=== PATIENT | male | born 1990 | race Hispanic/Latino ===

== ENCOUNTER 2017-08-03 03:01 | Emergency (ER) | payer SELFPAY ==
--- NOTE | 2017-08-03 03:31 | ER ---
Nurse's Notes [facility] Name: Narciso Plummer Age: 26 yrs Sex: Male : 1990 Arrival Date: 08/03/2017 Time: 03:02 Bed 20 Private MD: Diagnosis: Epigastric pain Presentation: 08/03 03:10 Presenting complaint: Patient states: I WAS WALKING FROM MY AUNT'S HOUSE AND I FELT bp THIS PRESSURE AND LIKE EVERYTHING WAS CAVING IN, LIKE I WAS GONNA . Transition of care: patient was not received from another setting of care. Onset of symptoms was August 03, 2017 at 02:00. Care prior to arrival: None. 03:10 Method Of Arrival: Ambulatory bp 03:10 Acuity: IVANNA 4 bp Triage Assessment: 03:13 General: Appears distressed, comfortable, slender, Behavior is cooperative, appropriate bp for age, agitated, anxious. Pain: Denies pain. EENT: No deficits noted. Neuro: Level of Consciousness is awake, alert, obeys commands, Oriented to person, place, time, situation, Appropriate for age. Cardiovascular: Rhythm is sinus rhythm. Respiratory: Airway is patent Respiratory effort is even, unlabored, Respiratory pattern is regular, symmetrical. GI: No deficits noted. : No signs and/or symptoms were reported regarding the genitourinary system. Derm: No deficits noted. Musculoskeletal: Circulation, motion, and sensation intact. Range of motion: intact in all extremities. Historical: - Allergies: 03:13 No Known Allergies; bp - Home Meds: 03:13 Seroquel Oral [Active]; Cogentin Oral [Active]; Depakote ER Oral [Active]; bp - PMHx: 03:13 "psych issues"; bp - Immunization history:: Adult Immunizations up to date. - Social history:: Smoking status: Patient uses tobacco products, denies chronic smoking, but will smoke occasionally, Patient uses alcohol, occasionally. Screenin:17 Abuse screen: Denies threats or abuse. Denies injuries from another. Nutritional bp screening: No deficits noted. Tuberculosis screening: No symptoms or risk factors identified. Fall Risk None identified. Assessment: 03:15 Reassessment: SEE TRIAGE NOTE. bp 03:17 Pain: Pain radiates to GENERALIZED Pain began 1 hour ago. bp 03:38 Reassessment: PT D/C HOME AMBULATORY, DX WITH NON-SPECIFIC CHEST PAIN. bp Vital Signs: 03:13 BP 141 / 87; Pulse 73; Resp 20; Temp 98.2; Pulse Ox 99% on R/A; Weight 88.45 kg; Height bp 6 ft. 1 in. (185.42 cm); 03:13 Body Mass Index 25.73 (88.45 kg, 185.42 cm) bp ED Course: 03:02 Patient arrived in ED. ds1 03:05 James Martines MD is Attending Physician. 03:10 Reginaldo Wells, RN is Primary Nurse. bp 03:12 Triage completed. bp 03:17 Arm band placed on. bp 03:17 Patient has correct armband on for positive identification. Bed in low position. Call bp light in reach. Side rails up X2. night monitor on. Pulse ox on. 03:17 No provider procedures requiring assistance completed. Patient did not have IV access bp during this emergency room visit. Patient maintains SpO2 saturation greater than 95% on room air. Administered Medications: No medications were administered Outcome: 03:30 Discharge ordered by . gs 03:44 Discharged to home ambulatory. bp 03:44 Condition: stable 03:44 Discharge instructions given to patient, Instructed on discharge instructions, follow up and referral plans. medication usage, Demonstrated understanding of instructions, follow-up care, medications, Prescriptions given X 1. 03:45 Patient left the ED. bp Signatures: Neida Miller ds1 James Martines MD MD gs Peltier, Brian, RN RN bp
--- NOTE | 2017-08-03 03:31 | EDPHYS ---
Physician Documentation [facility] Name: Narciso Plummer Age: 26 yrs Sex: Male : 1990 Arrival Date: 08/03/2017 Time: 03:02 Bed 20 Private MD: ED Physician James Martines HPI: 08/03 03:28 This 26 yrs old Male presents to ER via Ambulatory with complaints of Chest gs Pain, Headache. 03:28 The patient or guardian reports chest pain that is located primarily in the epigastric gs area. The pain does not radiate. Associated signs and symptoms: Pertinent positives: headache, Pertinent negatives: shortness of breath, syncope. The chest pain is described as burning. Duration: The patient or guardian reports multiple episodes, that are intermittent, that wax and wane, with no pattern. Modifying factors: The symptoms are alleviated by nothing. the symptoms are aggravated by eating. Severity of pain: At its worst the pain was moderate in the emergency department the pain has improved markedly. The patient has experienced similar episodes in the past, several times. Historical: - Allergies: 03:13 No Known Allergies; bp - Home Meds: 03:13 Seroquel Oral [Active]; Cogentin Oral [Active]; Depakote ER Oral [Active]; bp - PMHx: 03:13 "psych issues"; bp - Immunization history:: Adult Immunizations up to date. - Social history:: Smoking status: Patient uses tobacco products, denies chronic smoking, but will smoke occasionally, Patient uses alcohol, occasionally. ROS: 03:28 All other systems are negative. gs 03:32 Neuro: Positive for headache, intermittent gradual onset mild, not new. gs Exam: 03:28 Head/Face: Normocephalic, atraumatic. Eyes: Pupils equal round and reactive to light, gs extra-ocular motions intact. Lids and lashes normal. Conjunctiva and sclera are non-icteric and not injected. Cornea within normal limits. Periorbital areas with no swelling, redness, or edema. ENT: Nares patent. No nasal discharge, no septal abnormalities noted. Tympanic membranes are normal and external auditory canals are clear. Oropharynx with no redness, swelling, or masses, exudates, or evidence of obstruction, uvula midline. Mucous membranes moist. Neck: Trachea midline, no thyromegaly or masses palpated, and no cervical lymphadenopathy. Supple, full range of motion without nuchal rigidity, or vertebral point tenderness. No Meningismus. Chest/axilla: Normal chest wall appearance and motion. Nontender with no deformity. No lesions are appreciated. Cardiovascular: Regular rate and rhythm with a normal S1 and S2. No gallops, murmurs, or rubs. Normal PMI, no JVD. No pulse deficits. Respiratory: Lungs have equal breath sounds bilaterally, clear to auscultation and percussion. No rales, rhonchi or wheezes noted. No increased work of breathing, no retractions or nasal flaring. Abdomen/GI: Soft, non-tender, with normal bowel sounds. No distension or tympany. No guarding or rebound. No evidence of tenderness throughout. Back: No spinal tenderness. No costovertebral tenderness. Full range of motion. Skin: Warm, dry with normal turgor. Normal color with no rashes, no lesions, and no evidence of cellulitis. MS/ Extremity: Pulses equal, no cyanosis. Neurovascular intact. Full, normal range of motion. Neuro: Awake and alert, GCS 15, oriented to person, place, time, and situation. Cranial nerves II-XII grossly intact. Motor strength 5/5 in all extremities. Sensory grossly intact. Cerebellar exam normal. Normal gait. 03:28 Constitutional: The patient appears alert, awake. 03:28 ECG was reviewed by the Attending Physician. Vital Signs: 03:13 BP 141 / 87; Pulse 73; Resp 20; Temp 98.2; Pulse Ox 99% on R/A; Weight 88.45 kg; Height bp 6 ft. 1 in. (185.42 cm); 03:13 Body Mass Index 25.73 (88.45 kg, 185.42 cm) bp MDM: 03:28 Patient medically screened. gs 03:28 Differential diagnosis: abnormal EKG, chest wall pain, gastroesophageal reflux disease gs (GERD). Data reviewed: vital signs. 03:32 Counseling: I had a detailed discussion with the patient and/or guardian regarding: the gs presence of at least one elevated blood pressure reading (>120/80) during this emergency department visit. Special discussion: I have referred the patient to see his PCP for further evaluation of high blood pressure. EC:28 Rate is 73 beats/min. Rhythm is regular. IA interval is normal. QRS interval is normal. gs T waves are Normal. Clinical impression: Abnormal EKG without significant change. No change from previous ECG on May 17, 2017. Interpreted by me. Administered Medications: No medications were administered Disposition: 08/03/17 03:30 Discharged to Home. Impression: Epigastric pain. - Condition is Stable. - Discharge Instructions: Nonspecific Chest Pain, Managing Your High Blood Pressure. - Prescriptions for Pepcid 20 mg Oral Tablet - take 1 tablet by ORAL route every 12 hours for 10 days; 20 tablet. - Medication Reconciliation Form, Thank You Letter, Antibiotic Education, Prescription Opioid Use form. - Follow up: Private Physician; When: 2 - 3 days; Reason: Re-evaluation by your physician. Signatures: James Martines MD MD gs Peltier, Brian, RN RN bp
[2017-08-03 03:50] VITALS: BP 141/87; TEMP 98.2; O2SAT 99
--- NOTE | 2017-08-03 10:02 | EKG ---
Test Date: 2017-08-03 Test Time: 03:17:12 Lapper: EMS MEASUREMENT RESULTS: Intervals: Rate: 73 VA: 176 QRSD: 82 QT: 390 QTc: 429 [place]: P: 62 VA: 176 QRS: 73 T: 46 INTERPRETIVE STATEMENTS: Normal sinus rhythm ST elevation, probably due to early repolarization Borderline ECG Compared to ECG 05/17/2017 13:56:47 ST (T wave) deviation now present Early repolarization now present Electronically Signed On 08-03-17 10:01:21 CDT by Avery Stanley
== END 2017-08-03 03:45 | disposition home or self-care (01) ==
LOC: ER 03:01
DX: R10.13 Epigastric pain (principal); Z72.0 Tobacco use
CPT/HCPCS: 93005; 99284

== ENCOUNTER 2017-09-03 | Emergency (ER) | payer SELFPAY ==
--- NOTE | 2017-09-03 22:13 | ER ---
Nurse's Notes [facility] Name: Narciso Plummer Age: 26 yrs Sex: Male : 1990 Arrival Date: 09/03/2017 Time: 20:46 Bed 13 Private MD: Diagnosis: Epigastric pain Presentation: 09/03 20:53 Presenting complaint: Patient states: Epigastric pain since Jessica. Patient seen for aj same complaint 1 month ago. Patient is requesting ultrasound. Transition of care: patient was not received from another setting of care. Onset of symptoms was April 2017. Initial Sepsis Screen: Does the patient meet any 2 criteria? No. Patient's initial sepsis screen is negative. Does the patient have a suspected source of infection? No. Patient's initial sepsis screen is negative. Care prior to arrival: None. 20:53 Method Of Arrival: Ambulatory 20:53 Acuity: IVANNA 4 aj Triage Assessment: 20:55 General: Appears in no apparent distress. comfortable, Behavior is calm, cooperative, aj appropriate for age. Pain: Complains of pain in epigastric area. Neuro: Level of Consciousness is awake, alert, obeys commands, Oriented to person, place, time, situation. Respiratory: Airway is patent Respiratory effort is even, unlabored, Respiratory pattern is regular, symmetrical. GI: Reports epigastric pain. Derm: Skin is intact, is healthy with good turgor, Skin is pink, warm \T\ dry. normal. Historical: - Allergies: 20:55 No Known Allergies; aj - Home Meds: 20:55 Cogentin Oral [Active]; Depakote ER Oral [Active]; Seroquel Oral [Active]; aj - PMHx: 20:55 Bipolar disorder; aj - PSHx: 20:55 None; aj - Immunization history:: Adult Immunizations up to date. - Social history:: Smoking status: Patient uses tobacco products, denies chronic smoking, but will smoke occasionally. Screenin:25 Abuse screen: Denies threats or abuse. Denies injuries from another. Nutritional lp1 screening: No deficits noted. Tuberculosis screening: No symptoms or risk factors identified. Fall Risk None identified. Assessment: 21:30 General: Appears in no apparent distress. Behavior is anxious. Pain: Complains of pain lp1 in epigastric area. Neuro: Level of Consciousness is awake, alert, obeys commands, Oriented to person, place, time, situation. Cardiovascular: Patient's skin is warm and dry. Respiratory: Respiratory effort is even, unlabored. GI: Abdomen is flat, Reports upper abdominal pain, since April 2017. : No signs and/or symptoms were reported regarding the genitourinary system. EENT: No signs and/or symptoms were reported regarding the EENT system. Derm: Skin is pink, warm \T\ dry. Musculoskeletal: Circulation, motion, and sensation intact. Vital Signs: 20:55 BP 130 / 86; Pulse 84; Resp 17; Temp 97.6; Pulse Ox 99% on R/A; Weight 88.45 kg; Height aj 6 ft. 2 in. (187.96 cm); Pain 5/10; 20:55 Body Mass Index 25.04 (88.45 kg, 187.96 cm) ED Course: 20:46 Patient arrived in ED. ds1 20:54 Triage completed. aj 20:55 Arm band placed on right wrist. Patient placed in waiting room, Patient notified of wait time. 21:30 Lubna Cain, RN is Primary Nurse. lp1 21:34 James Martines MD is Attending Physician. 22:12 Jaspreet Carey MD is Referral Physician. gs 22:25 Patient has correct armband on for positive identification. lp1 22:25 No provider procedures requiring assistance completed. Patient did not have IV access lp1 during this emergency room visit. Administered Medications: No medications were administered Outcome: 22:13 Discharge ordered by . gs 22:25 Discharged to home ambulatory. lp1 22:25 Condition: good 22:25 Discharge instructions given to patient, Instructed on discharge instructions, follow up and referral plans. medication usage, Demonstrated understanding of instructions, follow-up care, medications, Prescriptions given X 1. 22:26 Patient left the ED. lp1 Signatures: Elaine Oliver RN RN aj Sanford, Demi ds1 Lubna Cain RN RN lp1 James Martines MD MD
--- NOTE | 2017-09-03 22:14 | EDPHYS ---
Physician Documentation [facility] Name: Narciso Plummer Age: 26 yrs Sex: Male : 1990 Arrival Date: 09/03/2017 Time: 20:46 Bed 13 Private MD: ED Physician James Martines HPI: 09/03 22:05 This 26 yrs old Male presents to ER via Ambulatory with complaints of Upper gs Abd Pain. 22:05 The patient presents with abdominal pain in the epigastric area, in the upper abdomen. gs Onset: The symptoms/episode began/occurred 1 year(s) ago. Associated signs and symptoms: Pertinent negatives: nausea and vomiting, chest pain, fever. The symptoms are described as burning, dull. Modifying factors: The symptoms are alleviated by nothing, the symptoms are aggravated by alcohol. Severity of pain: At its worst the pain was moderate in the emergency department the pain has improved markedly. The patient has experienced similar episodes in the past, multiple times. Historical: - Allergies: 20:55 No Known Allergies; aj - Home Meds: 20:55 Cogentin Oral [Active]; Depakote ER Oral [Active]; Seroquel Oral [Active]; aj - PMHx: 20:55 Bipolar disorder; aj - PSHx: 20:55 None; aj - Immunization history:: Adult Immunizations up to date. - Social history:: Smoking status: Patient uses tobacco products, denies chronic smoking, but will smoke occasionally. ROS: 22:05 All other systems are negative. gs Exam: 22:05 Head/Face: Normocephalic, atraumatic. Eyes: Pupils equal round and reactive to light, gs extra-ocular motions intact. Lids and lashes normal. Conjunctiva and sclera are non-icteric and not injected. Cornea within normal limits. Periorbital areas with no swelling, redness, or edema. ENT: Nares patent. No nasal discharge, no septal abnormalities noted. Tympanic membranes are normal and external auditory canals are clear. Oropharynx with no redness, swelling, or masses, exudates, or evidence of obstruction, uvula midline. Mucous membranes moist. Neck: Trachea midline, no thyromegaly or masses palpated, and no cervical lymphadenopathy. Supple, full range of motion without nuchal rigidity, or vertebral point tenderness. No Meningismus. Chest/axilla: Normal chest wall appearance and motion. Nontender with no deformity. No lesions are appreciated. Cardiovascular: Regular rate and rhythm with a normal S1 and S2. No gallops, murmurs, or rubs. Normal PMI, no JVD. No pulse deficits. Respiratory: Lungs have equal breath sounds bilaterally, clear to auscultation and percussion. No rales, rhonchi or wheezes noted. No increased work of breathing, no retractions or nasal flaring. Abdomen/GI: Soft, non-tender, with normal bowel sounds. No distension or tympany. No guarding or rebound. No evidence of tenderness throughout. Back: No spinal tenderness. No costovertebral tenderness. Full range of motion. Skin: Warm, dry with normal turgor. Normal color with no rashes, no lesions, and no evidence of cellulitis. MS/ Extremity: Pulses equal, no cyanosis. Neurovascular intact. Full, normal range of motion. Neuro: Awake and alert, GCS 15, oriented to person, place, time, and situation. Cranial nerves II-XII grossly intact. Motor strength 5/5 in all extremities. Sensory grossly intact. Cerebellar exam normal. Normal gait. 22:05 Constitutional: The patient appears alert, awake. Vital Signs: 20:55 BP 130 / 86; Pulse 84; Resp 17; Temp 97.6; Pulse Ox 99% on R/A; Weight 88.45 kg; Height aj 6 ft. 2 in. (187.96 cm); Pain 5/10; 20:55 Body Mass Index 25.04 (88.45 kg, 187.96 cm) aj MDM: 22:05 Differential diagnosis: gastritis, gastroesophageal reflux disease, non-specific abd gs pain. Data reviewed: vital signs, nurses notes. 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 Response to treatment: There is no appreciated change of the patient's symptoms at this time, and as a result, I will discharge patient. 22:13 Patient medically screened. gs Administered Medications: No medications were administered Disposition: 09/03/17 22:13 Discharged to Home. Impression: Epigastric pain. - Condition is Stable. - Discharge Instructions: Abdominal Pain, Adult. - Prescriptions for Prilosec 20 mg Oral Capsule, Delayed Release(E.C.) - take 1 capsule by ORAL route once daily; 15 capsule. - Medication Reconciliation Form, Thank You Letter, Antibiotic Education, Prescription Opioid Use form. - Follow up: Jaspreet Carey MD; When: 5 - 6 days; Reason: Re-evaluation by your physician. Signatures: Elaine Oliver RN RN Lubna Metz RN RN lp1 James Martines MD MD
== END 2017-09-03 22:26 | disposition home or self-care (01) ==
CPT/HCPCS: 99282

== ENCOUNTER 2021-04-28 23:36 | Observation (INO) | payer SELFPAY ==
--- NOTE | 2021-04-29 03:30 | ER ---
Nurse's Notes [facility] Name: Narciso Plummer Age: 30 yrs Sex: Male : 1990 Arrival Date: 04/28/2021 Time: 23:44 Bed 20 Private MD: Diagnosis: Cutaneous abscess of limb, unspecified-left thigh;Fever, unspecified Presentation: 04/28 23:58 Chief complaint: Patient states: Multiple insect bites on legs x 5 days ago. da3 Coronavirus screen: Vaccine status: Patient reports being unvaccinated. Ebola Screen: No symptoms or risks identified at this time. Initial Sepsis Screen: Does the patient meet any 2 criteria? No. Patient's initial sepsis screen is negative. Does the patient have a suspected source of infection? No. Patient's initial sepsis screen is negative. Risk Assessment: Do you want to hurt yourself or someone else? Patient reports no desire to harm self or others. Onset of symptoms was April 24, 2021 at 15:00. 23:58 Method Of Arrival: Ambulatory da3 23:58 Acuity: IVANNA 3 da3 Triage Assessment: 23:58 Bite description: bite sustained to right leg and left leg. General: Appears in no da3 apparent distress. comfortable, Behavior is calm, cooperative. Pain: Pain currently is 10 out of 10 on a pain scale. 04/29 06:30 Bite description: animal information: vaccination(s) is not applicable. bb 06:31 Bite description: by not an animal bite. bb Historical: - Allergies: 04:24 No Known Allergies; bb - Immunization history:: Client reports having NOT received the Covid vaccine. - Social history:: Smoking status: Patient reports the use of cigarette tobacco products, Patient denies any tobacco usage or history of. Screenin:25 Abuse screen: Denies threats or abuse. Nutritional screening: No deficits noted. bb Tuberculosis screening: No symptoms or risk factors identified. Fall Risk None identified. Assessment: 03:28 Reassessment: ED physician states "he does not need blood cultures". bb 04:22 General: Appears in no apparent distress. uncomfortable, Behavior is calm, cooperative. bb Pain: Complains of pain in left leg Pain currently is 10 out of 10 on a pain scale. Neuro: Level of Consciousness is awake, alert, obeys commands, Oriented to person, place, time, situation. Cardiovascular: Capillary refill < 3 seconds Patient's skin is warm and dry. Respiratory: Airway is patent Respiratory effort is even, unlabored, Respiratory pattern is regular. GI: No signs and/or symptoms were reported involving the gastrointestinal system. Derm: Skin is intact, multiple different size abscesses scattered over legs. Musculoskeletal: Circulation, motion, and sensation intact. 05:30 Reassessment: Patient is alert, oriented x 3, equal unlabored respirations, skin bb warm/dry/pink. pt resting quietly, IV site patent, intact with fluids infusing, family at bedside. 06:29 Reassessment: Patient is alert, oriented x 3, equal unlabored respirations, skin bb warm/dry/pink. resting quietly, IV site intact, patent, family at bedside awaiting room assignment. Vital Signs: 04/28 23:58 BP 173 / 72; Pulse 77; Resp 16; Temp 98.9; Pulse Ox 99% on R/A; Weight 84.37 kg; Height da3 6 ft. 2 in. (187.96 cm); 04/29 04:25 BP 124 / 81; Pulse 66; Resp 16 S; Pulse Ox 98% on R/A; bb 06:41 BP 116 / 70; Pulse 61; Resp 16 S; Pulse Ox 96% on R/A; bb 04/28 23:58 Body Mass Index 23.88 (84.37 kg, 187.96 cm) da3 ED Course: 04/28 23:44 Patient arrived in ED. da3 23:58 Arm band placed on left wrist. da3 04/29 00:01 Triage completed. da3 02:51 Raheem Powers MD is Attending Physician. placido 03:27 Sinan Gutierrez MD is Hospitalizing Provider. placido 03:43 Initial lab(s) drawn, by ga, sent to lab. Inserted saline lock: 20 gauge in right lt3 antecubital area, using aseptic technique. 03:53 X-ray completed. Patient moved back from radiology. md1 04:00 Femur Left XRAY In Process Unspecified. EDMS 04:02 EKG done, by ED staff, reviewed by Raheem Powers MD. lt3 04:05 COVID-19 SARS RT PCR (Document "Date of Onset" if Symptomatic) Sent. lt3 04:22 Rousseau, Rema, RN is Primary Nurse. bb 04:25 Patient has correct armband on for positive identification. Placed in gown. Bed in low bb position. Call light in reach. Side rails up X 1. Adult w/ patient. Pulse ox on. NIBP on. 06:32 No provider procedures requiring assistance completed. Patient admitted, IV remains in bb place. Administered Medications: 03:40 Drug: NS 0.9% 1000 ml Route: IV; Rate: 1 bolus; Site: right antecubital; bb 04:30 Follow up: IV Status: Completed infusion; IV Intake: 1000ml bb 03:40 Drug: Zofran (Ondansetron) 4 mg Route: IVP; Site: right antecubital; bb 04:40 Follow up: Response: No adverse reaction bb 03:42 Drug: morphine 4 mg Route: IVP; Site: right antecubital; bb 04:40 Follow up: Response: No adverse reaction bb 04:26 Drug: Zosyn (piperacillin-tazobactam) 3.375 grams Route: IVPB; Infused Over: 60 mins; bb Site: right antecubital; 06:05 Follow up: IV Status: Completed infusion; IV Intake: 100ml bb 06:05 Drug: vancoMYCIN 1 grams Route: IVPB; Infused Over: 2 hrs; Site: right antecubital; bb 07:51 Follow up: Response: No adverse reaction [facility] Intake: 04:30 IV: 1000ml; Total: 1000ml. bb 06:05 IV: 100ml; Total: 1100ml. bb Outcome: 03:29 Decision to Hospitalize by Provider. [facility] 06:32 Instructed on the need for admit. bb 14:51 Admitted to Med/surg accompanied by nurse, via stretcher, room surgery at this time. 6 14:51 Condition: stable 14:56 Patient left the ED. [facility] Signatures: Dispatcher [employer] EDMS Raheem Powers MD MD cha Ballard, Brenda, RN RN bb Yudi Lin md1 Jayme Marques, RN RN da3 Nuzhat Dunaway RN RN tram6 Bette Haney lt3 Corrections: (The following items were deleted from the chart) 06:33 06:32 Derm: Skin is pink, warm \\T\\ dry. bb bb
--- NOTE | 2021-04-29 03:30 | EDPHYS ---
Physician Documentation [facility] Name: Narciso Plummer Age: 30 yrs Sex: Male : 1990 Arrival Date: 04/28/2021 Time: 23:44 Bed 20 Private MD: ED Physician Raheem Powers HPI: 04/29 03:20 This 30 yrs old Male presents to ER via Ambulatory with complaints of Insect placido Bite. 03:20 The patient presents with an abscess, moderate-sized, decreased range of motion, pain. placido The complaints affect the lateral aspect of left thigh and medial aspect of left thigh. Context: The problem was sustained at an unknown site, resulted from an unknown cause. Onset: The symptoms/episode began/occurred 5 day(s) ago. Modifying factors: The symptoms are alleviated by elevating leg, remaining still, the symptoms are aggravated by movement, bending knee. Associated signs and symptoms: Pertinent positives: swelling, warmth, of the lateral aspect of left thigh, left hamstring, medial aspect of left thigh and left quadriceps. Treatment prior to arrival includes: alyssa wrap. Severity of symptoms: At their worst the symptoms were moderate, in the emergency department the symptoms are unchanged. The patient has experienced similar episodes in the past, several times. Historical: - Allergies: 04:24 No Known Allergies; bb - Immunization history:: Client reports having NOT received the Covid vaccine. - Social history:: Smoking status: Patient reports the use of cigarette tobacco products, Patient denies any tobacco usage or history of. ROS: 03:21 Constitutional: Negative for fever, chills, and weight loss, Eyes: Negative for injury, placido pain, redness, and discharge, ENT: Negative for injury, pain, and discharge, Neck: Negative for injury, pain, and swelling, Cardiovascular: Negative for chest pain, palpitations, and edema, Respiratory: Negative for shortness of breath, cough, wheezing, and pleuritic chest pain, Abdomen/GI: Negative for abdominal pain, nausea, vomiting, diarrhea, and constipation, : Negative for injury, bleeding, discharge, and swelling, MS/Extremity: Negative for injury and deformity, Skin: Negative for injury, rash, and discoloration, Neuro: Negative for headache, weakness, numbness, tingling, and seizure, Psych: Negative for depression, anxiety, suicide ideation, homicidal ideation, and hallucinations, Allergy/Immunology: Negative for hives, rash, and allergies, Endocrine: Negative for neck swelling, polydipsia, polyuria, polyphagia, and marked weight changes. 03:21 Back: Positive for pain at rest, pain with movement. Exam: 03:21 Constitutional: This is a well developed, well nourished patient who is awake, alert, placido and in no acute distress. Head/Face: Normocephalic, atraumatic. Eyes: Pupils equal round and reactive to light, extra-ocular motions intact. Lids and lashes normal. Conjunctiva and sclera are non-icteric and not injected. Cornea within normal limits. Periorbital areas with no swelling, redness, or edema. ENT: Nares patent. No nasal discharge, no septal abnormalities noted. Tympanic membranes are normal and external auditory canals are clear. Oropharynx with no redness, swelling, or masses, exudates, or evidence of obstruction, uvula midline. Mucous membranes moist. Neck: Trachea midline, no thyromegaly or masses palpated, and no cervical lymphadenopathy. Supple, full range of motion without nuchal rigidity, or vertebral point tenderness. No Meningismus. Chest/axilla: Normal chest wall appearance and motion. Nontender with no deformity. No lesions are appreciated. Cardiovascular: Regular rate and rhythm with a normal S1 and S2. No gallops, murmurs, or rubs. Normal PMI, no JVD. No pulse deficits. Respiratory: Lungs have equal breath sounds bilaterally, clear to auscultation and percussion. No rales, rhonchi or wheezes noted. No increased work of breathing, no retractions or nasal flaring. Abdomen/GI: Soft, non-tender, with normal bowel sounds. No distension or tympany. No guarding or rebound. No evidence of tenderness throughout. Back: No spinal tenderness. No costovertebral tenderness. Full range of motion. Male : Normal genitalia with no discharge or lesions. Skin: Warm, dry with normal turgor. Normal color with no rashes, no lesions, and no evidence of cellulitis. Neuro: Awake and alert, GCS 15, oriented to person, place, time, and situation. Cranial nerves II-XII grossly intact. Motor strength 5/5 in all extremities. Sensory grossly intact. Cerebellar exam normal. Normal gait. Psych: Awake, alert, with orientation to person, place and time. Behavior, mood, and affect are within normal limits. 03:21 Musculoskeletal/extremity: Extremities: noted in the medial aspect of left thigh: decreased ROM, erythema, pain, swelling, ROM: full active range of motion, full passive range of motion, in the medial aspect of left thigh, Circulation is intact in all extremities. Sensation intact. DVT Exam: negative Homans' sign noted on exam, no appreciated bluish discoloration, pain, swelling, tenderness, erythema, increased warmth. 04:14 ECG was reviewed by the Attending Physician. [facility] Vital Signs: 04/28 23:58 BP 173 / 72; Pulse 77; Resp 16; Temp 98.9; Pulse Ox 99% on R/A; Weight 84.37 kg; Height da3 6 ft. 2 in. (187.96 cm); 04/29 04:25 BP 124 / 81; Pulse 66; Resp 16 S; Pulse Ox 98% on R/A; bb 06:41 BP 116 / 70; Pulse 61; Resp 16 S; Pulse Ox 96% on R/A; bb 04/28 23:58 Body Mass Index 23.88 (84.37 kg, 187.96 cm) da3 MDM: 02:51 Patient medically screened. [facility] 03:23 Differential diagnosis: closed fracture, contusion, abrasion. Data reviewed: [facility] signs, nurses notes, lab test result(s), EKG, radiologic studies. Data interpreted: radiation monitor: rate is 77 beats/min, rhythm is regular, Pulse oximetry: on room air is 99 %. Test interpretation: by ED physician or midlevel provider: ECG, plain radiologic studies. Counseling: I had a detailed discussion with the patient and/or guardian regarding: the historical points, exam findings, and any diagnostic results supporting the discharge/admit diagnosis, lab results, radiology results, the need for further work-up and treatment in the hospital. 04/29 03:19 Order name: CBC with Diff; Complete Time: 04:38 [facility] 04/29 03:19 Order name: Comprehensive Metabolic Panel; Complete Time: 04:38 [facility] 04/29 03:19 Order name: Femur Left XRAY; Complete Time: 09:50 [facility] 04/29 03:23 Order name: COVID-19 SARS RT PCR (Document "Date of Onset" if Symptomatic) mw2 04/29 03:24 Order name: SARS-COV-2 RT PCR; Complete Time: 09:50 EDMS 04/29 03:23 Order name: EKG; Complete Time: 03:24 placido 04/29 03:23 Order name: EKG - Nurse/Tech; Complete Time: 04:03 placido EC:14 Rate is 58 beats/min. Rhythm is regular. QRS Mcalister is Normal. PA interval is normal. QRS placido interval is normal. QT interval is normal. No Q waves. T waves are Normal. No ST changes noted. Clinical impression: Normal ECG and No evidence of ischemia. Interpreted by me. Reviewed by me. Administered Medications: 03:40 Drug: NS 0.9% 1000 ml Route: IV; Rate: 1 bolus; Site: right antecubital; bb 04:30 Follow up: IV Status: Completed infusion; IV Intake: 1000ml bb 03:40 Drug: Zofran (Ondansetron) 4 mg Route: IVP; Site: right antecubital; bb 04:40 Follow up: Response: No adverse reaction bb 03:42 Drug: morphine 4 mg Route: IVP; Site: right antecubital; bb 04:40 Follow up: Response: No adverse reaction bb 04:26 Drug: Zosyn (piperacillin-tazobactam) 3.375 grams Route: IVPB; Infused Over: 60 mins; bb Site: right antecubital; 06:05 Follow up: IV Status: Completed infusion; IV Intake: 100ml bb 06:05 Drug: vancoMYCIN 1 grams Route: IVPB; Infused Over: 2 hrs; Site: right antecubital; bb 07:51 Follow up: Response: No adverse reaction [facility] Disposition Summary: 04/29/21 03:29 Hospitalization Ordered Hospitalization Status: Observation placido Provider: Sinan Gutierrez cha Condition: Stable placido Problem: new placido Symptoms: have improved placido Bed/Room Type: Standard placido Location: [facility] ER HOLD(04/29/21 03:43) cg Room Assignment: ERHOLD-(04/29/21 03:43) cg Diagnosis - Cutaneous abscess of limb, unspecified - left thigh placido - Fever, unspecified placido Forms: - Medication Reconciliation Form placido - SBAR form placido Signatures: Dispatcher [employer] EDRaheem Guerrier MD MD cha Mickail, Joel, PA PA jmm Ballard, Brenda, RN RN Esme Alvarado RN RN cg Jayme Marques RN RN da3 Nuzhat Dunaway RN jh6 Corrections: (The following items were deleted from the chart) 03:29 Telemetry/MedSurg (observation) [facility] 03:29 [facility]
[2021-04-29 03:56] LABS: Absolute Lymphocytes (CBC) 2.1 K/uL (0.7-4.9); Basophils % 0.7 % (0-1.3); Hematocrit 45.6 % (39.6-49.0); Lymphocytes % 16.2 % (15.3-44.8); MPV 8.6 fL (7.6-11.3); RBC Red Blood Cell Count 5.73 M/uL (4.33-5.43)
[2021-04-29 04:08] LABS: Albumin 3.5 g/dL (3.4-5.0); Bilirubin Total 0.5 mg/dL (0.2-1.0); Potassium 3.7 mmol/L (3.5-5.1)
[2021-04-29] MEDS ORDERED: ONDANSETRON 4 MG/2 ML VIAL ONE ×2 (04:10→14:22)
[2021-04-29] MEDS ORDERED: MORPHINE 4 MG/ML SYR ONE ×2 (04:10→09:23)
[2021-04-29] MEDS ORDERED: NA CHLORIDE 0.9% 250 ML ONE ×2 (04:10→04:11)
[2021-04-29] MEDS ORDERED: VANCOMYCIN 1 GM/VIAL ONE (04:10)
[2021-04-29] MEDS ORDERED: NA CHLORIDE 0.9% 100 ML ONE ×3 (04:10→12:17)
[2021-04-29] MEDS ORDERED: PIPERACIL/TAZO 3.375 GM VIAL IV ONE ×2 (04:11→12:18)
[2021-04-29] MEDS ORDERED: NA CHLORIDE 0.9% 1,000 ML ONE ×2 (04:11→09:23)
[2021-04-29 07:43] VITALS: BMI 25.0
--- NOTE | 2021-04-29 07:57 | RAD REPORT ---
EXAM DESCRIPTION: RAD - Femur Left - 04/29/2021 3:59 am CLINICAL HISTORY: Left leg pain FINDINGS: No fracture is seen. No bony lesion is displayed. Edema is present the subcutaneous tissues
[2021-04-29] MEDS ORDERED: VANCOMYCIN 1 GM in NA CHLORIDE 0.9% 250 ML IVPB SCH (08:01)
[2021-04-29] MEDS ORDERED: MORPHINE 4 MG/ML SYR IV PRN (08:01)
[2021-04-29] MEDS ORDERED: NA CHLORIDE 0.9% 1,000 ML IV SCH (08:01)
[2021-04-29] MEDS ORDERED: ONDANSETRON 4 MG/2 ML VIAL IV PRN (08:01)
[2021-04-29] MEDS ORDERED: ACETAMINOPHEN 325 MG TABLET PO PRN (08:08)
[2021-04-29] MEDS ORDERED: PIPER TAZO 3.375 GM in NA CHLORIDE 0.9% 100 ML IV SCH (09:00)
[2021-04-29] MEDS ORDERED: VANCOMYCIN 1.5 GM in NA CHLORIDE 0.9% 500 ML IVPB SCH (09:00)
[2021-04-29] MEDS ORDERED: MIDAZOLAM HCL 2 MG/2 ML INJ ONE (14:22)
[2021-04-29] MEDS ORDERED: KETOROLAC 30 MG/ML INJ ONE (14:22)
[2021-04-29] MEDS ORDERED: propofoL 200 MG/20 ML VIAL IV ONE (14:22)
[2021-04-29] MEDS ORDERED: FENTANYL CITR 100 MCG/2 ML ONE (14:22)
[2021-04-29] MEDS ORDERED: LIDOCAINE 1% MPF 30 ML VIAL ONE (14:23)
[2021-04-29] MEDS ORDERED: Mastisol Adhesive Liq ONE (14:32)
[2021-04-29] MEDS ORDERED: GLYCOPYRROLATE 0.2 MG/ML SYR ONE (14:47)
--- NOTE | 2021-04-29 15:54 | P.BOP ---
Preoperative diagnosis: cellutis, multiple abscess left thigh Postoperative diagnosis: same Primary procedure: 1. Incision and drainage complex left lateral thigh 10x8cm Secondary procedure: 2. Incision and drainage complex left medial thigh 8x6cm Estimated blood loss: <20cc Specimen: pus Findings: complex abscess Anesthesia: General Complications: None Drain(s): Other Transferred to: Recovery Room Condition: Good
[2021-04-29] MEDS ORDERED: Ringers Lactate 1,000 ML IV ONE (15:55)
[2021-04-29] MEDS ORDERED: CODEINE 30MG/APAP 300MG TAB ONE (16:36)
[2021-04-29 17:25] VITALS: BP 121/9; TEMP 97.5; O2SAT 100
--- NOTE | 2021-04-30 12:11 | OP ---
Date of Procedure: 04/30/2021 Surgeon: Sinan Gutierrez MD Preoperative Diagnosis: Cellulitis, multiple abscess on left thigh. Postoperative Diagnosis: Cellulitis, multiple abscess on left thigh. Procedure: 1.Incision and drainage of complex left lateral thigh abscess 10 x 8 cm. 2.Incision and drainage of complex lateral thigh abscess 8 x 6 cm. Estimated Blood Loss: Less than 20 cc. Findings: Complex abscess, lateral and medial left thigh. Anesthesia: General plus local. Indication: This is a case of a 30-year-old patient comes to us with a cellulitis of the left thigh region and found to have some purulent discharge coming from the area. The patient diagnosed with ab scess and booked in OR immediately. Benefits, alternatives, and risks of the I and D fully explained which include, but not limited to infection, bleeding, damage to adjacent structures, anesthesia com plication, recurrence, [place] and even . He also understands this may not relieve symptoms. He katherine ht need more than one surgical intervention. He understood, signed a consent. Procedure In Detail: The patient was brought to the operating room and placed in supine position. A nesthesia was done without complication. The left thigh was prepped and draped in sterile fashion. We identified the areas of concern, has some frequency of purulent discharge. We proceeded then to d o each one individually but using the same technique, which consisted of local anesthetic, then remov ing the devitalized necrotic tissue present. Once we removed the necrotic tissue present, gave us ac cess to a complex abscess with multiple loculations on each side. Each of them basically explored, fl ushed. Devitalized tissue was removed and then the area was packed with iodoform quarter of an inch. The second procedure was done using the same technique. Each area was irrigated individually and t hen packed. The patient tolerated the procedure well. Cultures were obtained. The patient was sent to recovery in stable condition. Discharge Summary: Diagnosis: Cellulitis and multiple abscess, left thigh. Procedure: Incision and drainage of complex left lateral and left medial thigh. Disposition: Home. Activity: As tolerated, no heavy lifting. Plan: Follow up in my office in 1 week. Call for appointment [phone]. Wet-to-dry dressing, manish guallpa daily. We explained to the patient and the family how to do dressing changes and they feel com fortable with that. Medications: See orders. SANDRA/MODL Voice ID: [id number] Report ID: [id number]
== END 2021-04-29 17:15 | disposition home or self-care (01) ==
LOC: ER 23:36 → ERHOLD 04-29 04:14
PROVIDERS: ADMIT Surgery; ATTEND Surgery
PROC: 0J9M0ZZ Drainage of Left Upper Leg Subcutaneous Tissue and Fascia, Open Approach (ICD-10-PCS; principal; 2021-04-29 14:00)
DX: L03.116 Cellulitis of left lower limb (principal); L02.416 Cutaneous abscess of left lower limb; Z20.822 Contact with and (suspected) exposure to COVID-19
CPT/HCPCS: 36415; 80053; 85025; 87070; 87075; 87077; 87186; 87205; 88304; 93005; 96361; 96365; 96366; 96375; 99285; G0378; J2250; J2405; J2543; J2704; J3010; J3370; J7030; J7040; J7050; J7120; U0003

== ENCOUNTER 2021-10-09 16:27 | Emergency (ER) | payer SELFPAY ==
[2021-10-09] MEDS ORDERED: BUPIVACAINE 0.25% PF 10 ML VIAL ONE (17:08)
[2021-10-09] MEDS ORDERED: LIDOCAINE 1% MPF 5 ML VIAL ONE (17:08)
[2021-10-09] MEDS ORDERED: LIDOCAINE 1% 20 ML MDV ONE (17:49)
--- NOTE | 2021-10-09 18:10 | ER ---
Nurse's Notes [facility] Name: Narciso Plummer Age: 30 yrs Sex: Male : 1990 Arrival Date: 10/09/2021 Time: 16:29 Bed 11 Private MD: Diagnosis: Cutaneous abscess of the right lower leg Presentation: 10/09 16:56 Chief complaint: Patient states: insect bite to right calf area X 1 week, now red and iw draining. Coronavirus screen: At this time, the client does not indicate any symptoms associated with coronavirus-19. Ebola Screen: Patient negative for fever greater than or equal to 101.5 degrees Fahrenheit, and additional compatible Ebola Virus Disease symptoms Patient denies exposure to infectious person. Patient denies travel to an Ebola-affected area in the 21 days before illness onset. No symptoms or risks identified at this time. Initial Sepsis Screen: Does the patient meet any 2 criteria? No. Patient's initial sepsis screen is negative. Does the patient have a suspected source of infection? No. Patient's initial sepsis screen is negative. Risk Assessment: Do you want to hurt yourself or someone else? Patient reports no desire to harm self or others. Onset of symptoms was October 02, 2021. 16:56 Method Of Arrival: Ambulatory iw 16:56 Acuity: IVANNA 4 iw Triage Assessment: 17:30 Bite description: bite sustained to right calf by insite. General: Appears in no alas apparent distress. Behavior is calm, cooperative. 17:35 Bite description: animal information: vaccination(s) is current. alas Historical: - Allergies: 16:57 No Known Allergies; iw - Home Meds: 16:57 none [Active]; iw 17:31 Cogentin Oral [Active]; Depakote ER Oral [Active]; Seroquel Oral [Active]; alas - PMHx: 16:57 Bipolar disorder; iw - Immunization history:: Adult Immunizations up to date. - Social history:: Smoking status: Patient denies any tobacco usage or history of. Screenin:58 Abuse screen: Denies threats or abuse. Denies injuries from another. Nutritional iw screening: No deficits noted. Tuberculosis screening: No symptoms or risk factors identified. Fall Risk None identified. Assessment: 16:58 General: Appears in no apparent distress. Behavior is calm, cooperative. Pain: iw Complains of pain in lateral aspect of right calf. Neuro: Level of Consciousness is awake, alert, obeys commands. Derm: Skin Skin is pink, warm \T\ dry. Abscess located on lateral aspect of right calf. Vital Signs: 16:56 BP 124 / 68; Pulse 89; Resp 16; Temp 97.1; Pulse Ox 96% on R/A; iw ED Course: 16:29 Patient arrived in ED. rg4 16:33 [facility] Castle [facility] 16:33 Archie Dickey MD is Attending Physician. [facility] 16:57 Triage completed. iw 16:58 Arm band placed on. iw 17:03 Libby Roberts, RN is Primary Nurse. iw 17:30 Patient has correct armband on for positive identification. Bed in low position. alas 17:30 No provider procedures requiring assistance completed. alas 18:09 Narciso Grace MD is Referral Physician. [facility] 18:24 Patient did not have IV access during this emergency room visit. alas Administered Medications: 18:04 Drug: Lidocaine (1 %) 20 ml Volume: 20 ml; Route: Infiltration; alas 18:05 Drug: Marcaine (bupivacaine) (0.5 %) 10 ml Volume: 10 ml; Route: Infiltration; alas 18:13 Drug: Bactrim (trimethoprim-sulfamethoxazole) (160 mg-800 mg (DS) 1 tablet Route: PO; alas 18:14 Follow up: Response: No adverse reaction alas 18:13 Drug: Doxycycline 100 mg Route: PO; alas 18:14 Follow up: Response: No adverse reaction alas Medication: 17:30 VIS not applicable for this client. alas Outcome: 18:09 Discharge ordered by . [facility] 18:23 Discharged to home ambulatory. alas 18:23 Condition: good 18:23 Discharge instructions given to patient, Prescriptions given X 2. 18:24 Patient left the ED. alas Signatures: Jay Castle PA PA Libby Mayorga, FELISA ROBERTO iw Uyen Blood rg4 Mady-StagerVi RN RN alas Corrections: (The following items were deleted from the chart) 16:58 16:56 Pulse 89bpm; Resp 16bpm; Temp 97.1F; iw iw
--- NOTE | 2021-10-09 18:10 | EDPHYS ---
Physician Documentation [facility] Name: Narciso Plummer Age: 30 yrs Sex: Male : 1990 Arrival Date: 10/09/2021 Time: 16:29 Bed 11 Private MD: ED Physician Archie Dickey HPI: 10/09 16:47 This 30 yrs old Male presents to ER via Ambulatory with complaints of Insect jmm Bite. 16:47 The patient presents with pain. The complaints affect the. Onset: The symptoms/episode jmm began/occurred gradually. Modifying factors: The symptoms are alleviated by nothing. the symptoms are aggravated by nothing. This is a 30-year-old male with history of bipolar that presents emerged part with complaints of right lower leg swelling beginning approximately a week ago. Patient denies any known injury. Denies fever. Historical: - Allergies: 16:57 No Known Allergies; iw - Home Meds: 16:57 none [Active]; iw 17:31 Cogentin Oral [Active]; Depakote ER Oral [Active]; Seroquel Oral [Active]; alas - PMHx: 16:57 Bipolar disorder; iw - Immunization history:: Adult Immunizations up to date. - Social history:: Smoking status: Patient denies any tobacco usage or history of. ROS: 16:47 Constitutional: Negative for fever, chills, and weight loss, Cardiovascular: Negative jmm for chest pain, palpitations, and edema, Respiratory: Negative for shortness of breath, cough, wheezing, and pleuritic chest pain. 16:47 MS/extremity: Positive for pain, swelling. 16:47 All other systems are negative. Exam: 16:47 Constitutional: This is a well developed, well nourished patient who is awake, alert, jmm and in no acute distress. Head/Face: atraumatic. Eyes: EOMI, no conjunctival erythema appreciated ENT: Moist Mucus Membranes Neck: Trachea midline, Supple Chest/axilla: Normal chest wall appearance and motion. Cardiovascular: Regular rate and rhythm. No edema appreciated Respiratory: Normal respirations, no respiratory distress appreciated Abdomen/GI: Non distended, soft Back: Normal ROM 16:47 Skin: Erythema and induration noted to the right lower leg.. 16:47 Neuro: Orientation: is normal, Mentation: is normal, Memory: is normal. 16:47 Psych: Behavior/mood is pleasant, cooperative. Vital Signs: 16:56 BP 124 / 68; Pulse 89; Resp 16; Temp 97.1; Pulse Ox 96% on R/A; iw Procedures: 18:08 I \T\ D: Incision and drainage was performed for an abscess of the right lateral aspect jmm of right calf Prepped with Betadine, Anesthetized with 10 ml's 1% Lidocaine. Incised with #11 blade. Drained moderate amount purulent fluid. Packed with iodoform gauze, Dressing: sterile 4x4 gauze, the patient tolerated the procedure well. MDM: 16:47 Patient medically screened. [facility] 18:08 Data reviewed: vital signs, nurses notes. Counseling: I had a detailed discussion with [facility] the patient and/or guardian regarding: the historical points, exam findings, and any diagnostic results supporting the discharge/admit diagnosis, the need for outpatient follow up, to return to the emergency department if symptoms worsen or persist or if there are any questions or concerns that arise at home. Administered Medications: 18:04 Drug: Lidocaine (1 %) 20 ml Volume: 20 ml; Route: Infiltration; alas 18:05 Drug: Marcaine (bupivacaine) (0.5 %) 10 ml Volume: 10 ml; Route: Infiltration; alas 18:13 Drug: Bactrim (trimethoprim-sulfamethoxazole) (160 mg-800 mg (DS) 1 tablet Route: PO; alas 18:14 Follow up: Response: No adverse reaction alas 18:13 Drug: Doxycycline 100 mg Route: PO; alas 18:14 Follow up: Response: No adverse reaction alas Disposition: 19:03 Co-signature as Attending Physician, Archie Dickey MD. rn Disposition Summary: 10/09/21 18:09 Discharge Ordered Location: Home [facility] Condition: Stable [facility] Diagnosis - Cutaneous abscess of the right lower leg [facility] Followup: [facility] - With: Narciso Grace MD - When: 2 - 3 days - Reason: Recheck today's complaints, Continuance of care, Re-evaluation by your physician Discharge Instructions: - Discharge Summary Sheet [facility] - Incision and Drainage, Care After m Forms: - Medication Reconciliation Form [facility] - Thank You Letter [facility] - Antibiotic Education [facility] - Prescription Opioid Use [facility] Prescriptions: - Doxycycline Hyclate 100 mg Oral Tablet - take 1 tablet by ORAL route every 12 hours; 20 tablet; Refills: 0, Product [facility] Selection Permitted - Bactrim DS 800-160 mg Oral Tablet - take 1 tablet by ORAL route every 12 hours for 10 days; 20 tablet; Refills: 0, [facility] Product Selection Permitted Signatures: Jay Castle PA PA jmm Williams, Irene, RN RN iw Nieto, Roman, MD MD rn Au-StageVi hyatt RN RN alas
[2021-10-09] MEDS ORDERED: DOXYCYCLINE 100 MG CAP PO ONE (18:14)
[2021-10-09] MEDS ORDERED: SMZ./TMP. 800/160 MG TABLET ONE (18:14)
[2021-10-09 18:32] VITALS: BP 124/68; TEMP 97.1; O2SAT 96
== END 2021-10-09 18:24 | disposition home or self-care (01) ==
LOC: ER 16:27
PROC: 0H9KXZZ Drainage of Right Lower Leg Skin, External Approach (ICD-10-PCS; principal; 2021-10-09)
DX: L02.415 Cutaneous abscess of right lower limb (principal); F31.9 Bipolar disorder, unspecified
CPT/HCPCS: 99283

== ENCOUNTER 2021-10-13 18:22 | Emergency (ER) | payer SELFPAY ==
[2021-10-13] MEDS ORDERED: LORazepam 2 MG/ML VIAL ONE (19:02)
[2021-10-13 19:15] LABS: Protime INR 1.12
[2021-10-13 19:21] LABS: Absolute Lymphocytes (CBC) 1.8 K/uL (0.7-4.9); Hematocrit 43.4 % (39.6-49.0); Lymphocytes % 23.1 % (15.3-44.8); MPV 8.2 fL (7.6-11.3); RBC Red Blood Cell Count 5.49 M/uL (4.33-5.43)
[2021-10-13 19:32] LABS: ALT/SGPT 30 U/L (12-78); AST/SGOT 20 U/L (15-37); Albumin 3.5 g/dL (3.4-5.0); Alkaline Phosphatase 80 U/L (45-117); BUN Blood Urea Nitrogen 12 mg/dL (7-18); Bicarbonate 29 mmol/L (21-32); Bilirubin Direct < 0.1 mg/dL (0-0.2); Bilirubin Total 0.3 mg/dL (0.2-1.0); Glomerular Filtration Rate 95 ml/min (=/>90); Glucose Level 97 mg/dL (74-106); Magnesium 1.9 mg/dL (1.8-2.4); NT PRO-BNP 47 pg/mL (<125); Potassium 3.9 mmol/L (3.5-5.1); Protein, Total 7.5 g/dL (6.4-8.2); Sodium Level 139 mmol/L (136-145); Troponin High Sensitivity 6.2 pg/mL (<58.9)
--- NOTE | 2021-10-13 20:22 | RAD REPORT ---
EXAM DESCRIPTION: RAD - Chest Single View - 10/13/2021 7:52 pm CLINICAL HISTORY: chest tightness Chest pain. COMPARISON: <Comparisons> FINDINGS: Portable technique limits examination quality. The lungs are grossly clear. The heart is normal in size. No displaced fractures. IMPRESSION: No acute intrathoracic process suspected.
--- NOTE | 2021-10-13 20:46 | RAD REPORT ---
EXAM DESCRIPTION: CT - Angio Aorta For Dissection - 10/13/2021 8:30 pm CLINICAL HISTORY: Chest pain radiating to the back. chest pain COMPARISON: No comparisons TECHNIQUE: CT angiography of the aorta was performed with MIPs. All CT scans are performed using dose optimization technique as appropriate and may include automated exposure control or mA/KV adjustment according to patient size. FINDINGS: A left aortic arch is present with normal branching pattern of the great vessels.No acute aortic finding is seen such as aneurysm, penetrating ulcer or dissection. The celiac axis, SMA, TIANNA and renal arteries are patent. No evidence of pulmonary embolism. The lungs are clear. The liver demonstrates no focal mass or biliary dilatation.The spleen, pancreas, adrenal glands and k idneys are within normal limits for arterial phase imaging. No bowel obstruction, free fluid or abscess.Normal appendix.No pathologic enlarged lymphadenopathy id entified. No fracture or worrisome bone lesion seen. IMPRESSION: No acute aortic finding is demonstrated.
--- NOTE | 2021-10-13 23:49 | EDPHYS ---
Physician Documentation [facility] Name: Narciso Plummer Age: 30 yrs Sex: Male : 1990 Arrival Date: 10/13/2021 Time: 18:33 Bed 3 Private MD: ED Physician Christ Gray HPI: 10/13 18:40 This 30 yrs old Male presents to ER via EMS with complaints of Chest Pain. cp 18:40 The patient or guardian reports chest pain that is located primarily in the anterior cp chest wall, bilaterally. 18:40 The pain radiates to. The chest pain is described as pulling. Duration: The patient or cp guardian reports a single episode, that is now resolved. Historical: - Allergies: 18:36 No Known Allergies; jd3 - Home Meds: 18:36 Cogentin Oral [Active]; Depakote ER Oral [Active]; Seroquel Oral [Active]; jd3 - PMHx: 18:36 Bipolar disorder; jd3 - PSHx: 18:36 None; jd3 - Immunization history:: Adult Immunizations up to date, Client reports having NOT received the Covid vaccine. Flu vaccine is up to date. - Social history:: Smoking status: Patient denies any tobacco usage or history of. ROS: 18:45 Constitutional: Negative for body aches, chills, fever, poor PO intake. cp 18:45 Cardiovascular: Positive for chest pain, palpitations. 18:45 Respiratory: Positive for shortness of breath. 18:45 Eyes: Negative for injury, pain, redness, and discharge. cp 18:45 ENT: Negative for drainage from ear(s), ear pain, sore throat, difficulty swallowing, difficulty handling secretions. 18:45 Abdomen/GI: Positive for abdominal pain, Negative for vomiting, diarrhea, constipation. 18:45 Back: Positive for radiated pain. 18:45 : Negative for urinary symptoms. 18:45 Neuro: Negative for altered mental status, dizziness, headache, weakness. 18:45 All other systems are negative. Exam: 18:48 ECG was reviewed by the Attending Physician. cp 18:50 Constitutional: The patient appears in no acute distress, alert, awake, cp non-diaphoretic, non-toxic, well developed, well nourished, anxious. 18:50 Head/Face: Normocephalic, atraumatic. cp 18:50 Eyes: Periorbital structures: appear normal, Pupils: equal, round, and reactive to light and accomodation, Extraocular movements: intact throughout, Conjunctiva: normal, no exudate, no injection, Sclera: no appreciated abnormality, Lids and lashes: appear normal, bilaterally. 18:50 ENT: External ear(s): are unremarkable, Nose: is normal, Mouth: Lips: moist, Oral mucosa: pink and intact, moist, Posterior pharynx: Airway: no evidence of obstruction, patent. 18:50 Neck: ROM/movement: is normal, is supple, without pain, no range of motions limitations. 18:50 Chest/axilla: Inspection: normal, Palpation: is normal, no crepitus, no tenderness. 18:50 Cardiovascular: Rate: normal, Rhythm: regular, Heart sounds: murmur, not appreciated, Edema: is not appreciated, JVD: is not appreciated. 18:50 Respiratory: the patient does not display signs of respiratory distress, Respirations: normal, no use of accessory muscles, no retractions, labored breathing, is not present, Breath sounds: are clear throughout, no decreased breath sounds, no stridor, no wheezing. Vital Signs: 18:36 BP 136 / 86; Pulse 81; Resp 18 S; Temp 98.0(TE); Pulse Ox 100% on R/A; Weight 95.25 kg jd3 (R); Height 6 ft. 2 in. (187.96 cm) (R); Pain 0/10; 20:16 BP 146 / 88; Pulse 70; Resp 20; Pulse Ox 99% on R/A; lg3 20:59 BP 133 / 75; Pulse 71; Resp 16; Pulse Ox 100% ; vc1 23:41 BP 121 / 64; Pulse 70; Resp 17 S; Pulse Ox 100% on R/A; lg3 18:36 Body Mass Index 26.96 (95.25 kg, 187.96 cm) jd3 MDM: 18:37 Patient medically screened. cp 19:00 Differential diagnosis: abnormal EKG, acute myocardial infarction, acute pericarditis, cp anxiety, pericarditis, pleurisy, pneumonia, pneumothorax, pulmonary embolus, thoracic aortic disection, unstable angina. 23:47 Data reviewed: vital signs. Data interpreted: Pulse oximetry: on room air is 100 %. pm1 Interpretation: normal. 23:47 Refusal of service: The patient/guardian displays adequate decision making capability pm1 and despite a detailed discussion of alternatives, benefits, risks, and consequences refuses: repeat troponin. Explained the rationale for repeat troponin. Patient reports that he is feeling fine without any chest pain and does not want any further labs because he is ready to go home. . 10/13 18:38 Order name: Basic Metabolic Panel; Complete Time: 19:42 cp 10/13 18:38 Order name: CBC with Diff; Complete Time: 19:42 cp 10/13 19:42 Interpretation: Normal except: RBC 5.49; MCV 79.1; MCH 25.7. cp 10/13 18:38 Order name: D-Dimer; Complete Time: 19:42 cp 10/13 19:42 Interpretation: Abnormal: D-DIMER 2855. cp 10/13 18:38 Order name: LFT's; Complete Time: 19:42 cp 10/13 18:38 Order name: Magnesium; Complete Time: 19:42 cp 10/13 18:38 Order name: NT PRO-BNP; Complete Time: 19:42 cp 10/13 18:38 Order name: PT-INR; Complete Time: 19:42 cp 10/13 18:38 Order name: Troponin HS; Complete Time: 19:42 cp 10/13 18:38 Order name: XRAY Chest (1 view); Complete Time: 20:33 cp 10/13 18:38 Order name: EKG; Complete Time: 18:39 cp 10/13 18:38 Order name: ETOH Level; Complete Time: 19:42 cp 10/13 19:47 Order name: CT Aorta for Dissection; Complete Time: 20:50 cp 10/13 18:38 Order name: Cardiac monitoring; Complete Time: 18:54 cp 10/13 18:38 Order name: EKG - Nurse/Tech; Complete Time: 18:54 cp 10/13 18:38 Order name: IV Saline Lock; Complete Time: 18:54 cp 10/13 18:38 Order name: Labs collected and sent; Complete Time: 18:54 cp 10/13 18:38 Order name: O2 Per Protocol; Complete Time: 18:39 cp 10/13 18:38 Order name: O2 Sat Monitoring; Complete Time: 18:40 cp EC:48 Rate is 75 beats/min. Rhythm is regular. IN interval is normal. QRS interval is normal. cp QT interval is normal. T waves are Inverted in lead aVR. Interpreted by me. Reviewed by me. Administered Medications: 19:00 Drug: Ativan (LORazepam) 0.5 mg Route: IVP; Site: right antecubital; jd3 23:41 Follow up: Response: No adverse reaction lg3 Disposition Summary: 10/13/21 23:48 Discharge Ordered Location: Home pm1 Problem: new pm1 Symptoms: have improved pm1 Condition: Stable pm1 Diagnosis - Chest pain, unspecified pm1 Followup: pm1 - With: Emergency Department - When: As needed - Reason: Worsening of condition Followup: pm1 - With: Private Physician - When: 2 - 3 days - Reason: Recheck today's complaints, Continuance of care, Re-evaluation by your physician Discharge Instructions: - Discharge Summary Sheet pm1 - Nonspecific Chest Pain, Adult pm1 Forms: - Medication Reconciliation Form pm1 - Thank You Letter pm1 - Antibiotic Education pm1 - Prescription Opioid Use pm1 Prescriptions: - Pepcid 20 mg Oral Tablet - take 1 tablet by ORAL route every 12 hours for 10 days; 20 tablet; Refills: 0, pm1 Product Selection Permitted Signatures: Dispatcher [employer] EDMS Raheem Mills PA PA cp Marinas, Patrick, MANAGER CARD MANAGER CARD pm1 Laurent Wagner RN RN jDanyell Pichardo RN lg3 Corrections: (The following items were deleted from the chart) 19:58 18:40 This 30 yrs old Male presents to ER via EMS with complaints of cp Palpitations. cp :10/12 18:45 Constitutional: Negative for body aches, chills, fever, poor PO intake, cp cp 10/13 20:10/12 18:45 Cardiovascular: Positive for chest pain, palpitations, cp cp 10/13 20:10/12 18:45 Respiratory: Positive for shortness of breath, cp cp
--- NOTE | 2021-10-13 23:49 | ER ---
Nurse's Notes [facility] Name: Narciso Plummer Age: 30 yrs Sex: Male : 1990 Arrival Date: 10/13/2021 Time: 18:33 Bed 3 Private MD: Diagnosis: Chest pain, unspecified Presentation: 10/13 18:33 Chief complaint: EMS states: "30 year old male that was at [facility] when he felt as jd3 sudden chest pain and shortness of breath. pt reports he has never felt this feeling before. pt also reported recent binge drinking while on vacation for 4 days and stopped today. pt also reporting not eating for the last 2 days other than a candy bar here and there.". Coronavirus screen: At this time, the client does not indicate any symptoms associated with coronavirus-19. Ebola Screen: No symptoms or risks identified at this time. Initial Sepsis Screen: Does the patient meet any 2 criteria? No. Patient's initial sepsis screen is negative. Does the patient have a suspected source of infection? No. Patient's initial sepsis screen is negative. Risk Assessment: Do you want to hurt yourself or someone else? Patient reports no desire to harm self or others. Onset of symptoms was October 13, 2021. 18:33 Method Of Arrival: EMS: [facility] jd3 18:33 Acuity: IVANNA 3 jd3 Historical: - Allergies: 18:36 No Known Allergies; jd3 - Home Meds: 18:36 Cogentin Oral [Active]; Depakote ER Oral [Active]; Seroquel Oral [Active]; jd3 - PMHx: 18:36 Bipolar disorder; jd3 - PSHx: 18:36 None; jd3 - Immunization history:: Adult Immunizations up to date, Client reports having NOT received the Covid vaccine. Flu vaccine is up to date. - Social history:: Smoking status: Patient denies any tobacco usage or history of. Screenin:37 Abuse screen: Denies threats or abuse. Nutritional screening: No deficits noted. jd3 Tuberculosis screening: No symptoms or risk factors identified. Fall Risk IV access (20 points). Ambulatory Aid- None/Bed Rest/Nurse Assist (0 pts). Gait- Normal/Bed Rest/Wheelchair (0 pts) Mental Status- Oriented to own ability (0 pts). Total Lee Fall Scale indicates No Risk (0-24 pts). Assessment: 18:37 General: Appears in no apparent distress. comfortable, Behavior is calm, cooperative, jd3 appropriate for age. Pain: Complains of pain in chest Quality of pain is described as pressure. Neuro: Varma Agitation-Sedation Scale (RASS): 0 - Alert and Calm Level of Consciousness is awake, alert, obeys commands, Oriented to person, place, time, situation. Cardiovascular: Reports chest pain, Capillary refill < 3 seconds Patient's skin is warm and dry. Respiratory: Reports shortness of breath at rest Airway is patent Respiratory effort is even, unlabored, Respiratory pattern is regular, symmetrical, Denies cough. GI: Abdomen is round non-distended, Abd is soft and non tender X 4 quads. Reports nausea. : No signs and/or symptoms were reported regarding the genitourinary system. EENT: No signs and/or symptoms were reported regarding the EENT system. Derm: Skin is intact, Skin is dry, Skin is normal, Skin temperature is warm. Musculoskeletal: Circulation, motion, and sensation intact. Range of motion: intact in all extremities. 20:16 General: Appears in no apparent distress. comfortable, Behavior is calm, cooperative, lg3 appropriate for age. Pain: Denies pain. Neuro: No deficits noted. Varma Agitation-Sedation Scale (RASS): 0 - Alert and Calm Level of Consciousness is awake, alert, obeys commands, Oriented to person, place, time, situation. Cardiovascular: No deficits noted. Reports chest pressure Capillary refill < 3 seconds Clubbing of nail beds is absent JVD is absent Patient's skin is warm and dry. Respiratory: No deficits noted. Airway is patent Trachea midline Respiratory effort is even, unlabored, Respiratory pattern is regular, symmetrical. GI: No deficits noted. No signs and/or symptoms were reported involving the gastrointestinal system. Abdomen is round non-distended. : No deficits noted. No signs and/or symptoms were reported regarding the genitourinary system. EENT: No deficits noted. No signs and/or symptoms were reported regarding the EENT system. Derm: No deficits noted. No signs and/or symptoms reported regarding the dermatologic system. Skin is intact, is healthy with good turgor, Skin is dry, Skin is pink, warm \\T\\ dry. Skin temperature is warm. Musculoskeletal: No deficits noted. No signs and/or symptoms reported regarding the musculoskeletal system. Circulation, motion, and sensation intact. Capillary refill < 3 seconds, Range of motion: intact in all extremities. 20:59 Reassessment: Patient and/or family updated on plan of care and expected duration. Pain vc1 level reassessed. Patient is alert, oriented x 3, equal unlabored respirations, skin warm/dry/pink. Patient states feeling better. Patient states symptoms have improved. 22:12 Reassessment: Patient appears in no apparent distress at this time. No changes from lg3 previously documented assessment. Patient and/or family updated on plan of care and expected duration. Pain level reassessed. Patient is alert, oriented x 3, equal unlabored respirations, skin warm/dry/pink. Patient states feeling better. Patient states symptoms have improved. 23:41 Reassessment: Patient appears in no apparent distress at this time. No changes from lg3 previously documented assessment. Patient and/or family updated on plan of care and expected duration. Pain level reassessed. Patient is alert, oriented x 3, equal unlabored respirations, skin warm/dry/pink. Patient denies pain at this time. Vital Signs: 18:36 BP 136 / 86; Pulse 81; Resp 18 S; Temp 98.0(TE); Pulse Ox 100% on R/A; Weight 95.25 kg j (R); Height 6 ft. 2 in. (187.96 cm) (R); Pain 0/10; 20:16 BP 146 / 88; Pulse 70; Resp 20; Pulse Ox 99% on R/A; lg3 20:59 BP 133 / 75; Pulse 71; Resp 16; Pulse Ox 100% ; vc1 23:41 BP 121 / 64; Pulse 70; Resp 17 S; Pulse Ox 100% on R/A; lg3 18:36 Body Mass Index 26.96 (95.25 kg, 187.96 cm) [facility] ED Course: 18:33 Patient arrived in ED. jd3 18:33 Raheem Mills PA is PHCP. cp 18:33 Christ Gray MD is Attending Physician. cp 18:35 Triage completed. jd3 18:37 Arm band placed on. jd3 18:37 Patient has correct armband on for positive identification. Bed in low position. Call [facility] light in reach. Side rails up X 1. Adult w/ patient. Client placed on continuous cardiac and pulse oximetry monitoring. NIBP monitoring applied. monitor car operator on. Pulse ox on. NIBP on. 18:57 Inserted saline lock: 20 gauge in right antecubital area, using aseptic technique. jd3 Blood collected. 19:53 XRAY Chest (1 view) In Process Unspecified. EDMS 20:16 Danyell Guerrero, RN is Primary Nurse. lg3 20:32 CT Aorta for Dissection In Process Unspecified. EDMS 20:39 PHCP role handed off by Raheem Mills PA pm1 20:39 Barron Brown NP is PHCP. pm1 23:54 No provider procedures requiring assistance completed. IV discontinued, intact, vc1 bleeding controlled, No redness/swelling at site. Pressure dressing applied. Administered Medications: 19:00 Drug: Ativan (LORazepam) 0.5 mg Route: IVP; Site: right antecubital; jd3 23:41 Follow up: Response: No adverse reaction lg3 Medication: 18:37 VIS not applicable for this client. jd3 Outcome: 23:48 Discharge ordered by MD. pm1 23:54 Discharged to home ambulatory, with significant other. vc1 23:54 Condition: good 23:54 Discharge instructions given to patient, Instructed on discharge instructions, follow up and referral plans. medication usage, Demonstrated understanding of instructions, follow-up care, medications, Prescriptions given X 1. 23:54 Patient left the ED. vc1 Signatures: Dispatcher [employer] EDIN Raheem Mills PA PA cp Marinas, Patrick, NP RIG SUPERINTENDENT pm1 Laurent Wagner RN RN jDanyell Pichardo, FELISA ROBERTO lg3 Nila Salvador RN RN vc1
[2021-10-14 00:30] VITALS: TEMP 98
[2021-10-14 00:35] VITALS: O2SAT 100
[2021-10-14 00:37] VITALS: BP 121/64
--- NOTE | 2021-10-15 12:21 | EKG ---
Test Date: 2021-10-13 Test Time: 18:41:46 [place]ologna Maker: DEMETRIO MEASUREMENT RESULTS: Intervals: Rate: 75 GA: 172 QRSD: 84 QT: 378 QTc: 422 [place]: P: 67 GA: 172 QRS: 85 T: 61 INTERPRETIVE STATEMENTS: Normal sinus rhythm Normal ECG Compared to ECG 04/29/2021 03:58:05 Sinus bradycardia no longer present Sinus arrhythmia no longer present Electronically Signed On 10-15-21 12:16:56 CDT by Delfino Machado
== END 2021-10-13 23:54 | disposition home or self-care (01) ==
LOC: ER 18:22
DX: R07.9 Chest pain, unspecified (principal); R00.2 Palpitations; R10.9 Unspecified abdominal pain; F31.9 Bipolar disorder, unspecified
CPT/HCPCS: 36415; 71045; 71275; 74175; 80048; 80076; 80320; 83735; 83880; 84484; 85025; 85379; 85610; 93005; 96374; 99285; Q9967